=== PATIENT | male | born 1990 | race Two or more races ===

== ENCOUNTER 2020-03-11 08:35 | Emergency (ER) | payer SELFPAY ==
[2020-03-11 08:41] VITALS: BP 119/80; PULSE 59; TEMP 98.4; BMI 27.8
[2020-03-11] MEDS ORDERED: KETOROLAC TROMETHAMINE 30 MG/1 ML VIAL IM ONE (09:48)
[2020-03-11] MEDS ORDERED: KETOROLAC TROMETHAMINE 30 MG/1 ML VIAL ONE (09:53)
--- NOTE | 2020-03-11 09:56 | PDOC ---
History of Present Illness - General Chief Complaint: Pain Stated Complaint: RT SWOLLEN FOOT Time Seen by Provider: 03/11/20 09:18 History Source: Patient Exam Limitations: Clinical Condition - History of Present Illness Initial Comments: 03/11/20 09:51 Patient with no significant past medical history present with complaint of aching pain to bottom of bilateral feet with increased pain to right plantar aspect of foot since yesterday which has been progressing getting worse today. Patient works in the [employer] and reported has prolonged standing. Denies any trauma or injury to foot. Reported increased pain to bottom of bilateral feet when he steps on the foot. Denies any other symptoms Is this a multiple visit Asthma Patient?: No Timing/Duration: 24 hours Past History - Medical History Allergies/Adverse Reactions: Allergies Allergy/AdvReac Type Severity Reaction Status Date / Time No Known Allergies Allergy Verified 03/11/20 08:41 Home Medications: Ambulatory Orders Ibuprofen 800 mg PO Q8H PRN #20 tablet 03/11/20 - Psycho-Social/Smoking History Smoking History: Never smoked Have you smoked in the past 12 months: No Information on smoking cessation initiated: No - Substance Abuse Hx (Audit-C & DAST Scrn) How often the patient has a drink containing alcohol: Never Score: In Men: 4 or > Positive; In Women: 3 or > Positive: 0 Screen Result (Pos requires Nsg. Audit-10AR): Negative In the last yr the pt used illegal drug/Rx for NonMed reason: No Score: Yes response is considered Positive: 0 Screen Result (Positive result requires Nsg. DAST-10): Negative Review of Systems - Review of Systems Able to Perform ROS?: Yes Is the patient limited Tajik proficient: No Constitutional: No: Chills, Fever, Malaise HEENTM: No: Symptoms Reported Respiratory: No: Symptoms reported Cardiac (ROS): No: Symptoms Reported Musculoskeletal: Yes: Symptoms Reported, See HPI, Muscle Pain (Pain to bottom of bilateral feet) Integumentary: No: Symptoms Reported, See HPI, Bruising, Change in Color, Erythema Neurological: No: Symptoms reported, Numbness, Paresthesia, Tingling All Other Systems: Reviewed and Negative *Physical Exam - Vital Signs Last Vital Signs Temp Pulse Resp BP Pulse Ox 98.4 F 59 L 18 119/80 98 03/11/20 08:38 03/11/20 08:38 03/11/20 08:38 03/11/20 08:38 03/11/20 08:38 - Physical Exam 03/11/20 09:58 GENERAL: Well developed, well nourished. Awake and alert in mild acute distress. PULMONARY: No evidence of respiratory distress. MUSCULOSKELETAL : mild tenderness over plantar aspect of bilateral feet with increased pain to plantar aspect of right midfoot. No bony deformities EXTREMITIES: No cyanosis. No clubbing. No edema. No calf tenderness. SKIN: Warm and dry. Normal capillary refill. No visible swelling, bruising or ecchymosis to bilateral feet NEUROLOGICAL: Alert, awake, appropriate. No motor deficits in the lower extremities. Gait is normal without ataxia. PSYCHIATRIC: Cooperative. Good eye contact. Appropriate mood and affect. General Appearance: Yes: Nourished, Appropriately Dressed, Mild Distress Medical Decision Making - Medical Decision Making 03/11/20 09:54 Patient with no significant past medical history present with complaint of aching pain to bottom of bilateral feet with increased pain to right plantar aspect of foot since yesterday which has been progressing getting worse today. Patient works in the [employer] and reported has prolonged standing. Denies any trauma or injury to foot. Reported increased pain to bottom of bilateral feet when he steps on the foot. Denies any other symptoms Exam significant for mild tenderness to the plantar aspect of bilateral feet with increased tenderness to right midfoot and plantar aspect. No visible swelling or deformity. No tenderness to ankle. Exam patient symptoms likely plantar fasciitis. Toradol 30 mg ordered for pain. Patient stable for discharge on ibuprofen PRN for pain and advised to do warm soaks and Epson salt water with podiatry follow-up as needed Discharge - Discharge Information Problems reviewed: Yes Clinical Impression/Diagnosis: Plantar fasciitis, bilateral Condition: Stable Disposition: HOME - Admission No - Additional Discharge Information Prescriptions: Ibuprofen 800 mg PO Q8H PRN #20 tablet PRN Reason: pain - Follow up/Referral Referrals: Jhonathan Ball MD [Staff Physician] - - Patient Discharge Instructions Patient Printed Discharge Instructions: DI for Plantar Fasciitis Additional Instructions: Your foot pain is likely from plantar fasciitis which is inflammation of the tendon of the foot. Take prescribed Motrin as needed for pain. Soak foot and Epson salt water and warm water as needed for pain. Follow-up referred podiatry symptoms persist for more than 4 days Print Language: TELUGU - Post Discharge Activity Work/Back to School Note: Back to Work
== END 2020-03-11 10:00 | disposition home or self-care (01) ==
LOC: JER 08:35
PROC: 3E0233Z Introduction of Anti-inflammatory into Muscle, Percutaneous Approach (ICD-10-PCS; principal; 2020-03-11)
DX: M72.2 Plantar fascial fibromatosis (principal)
CPT/HCPCS: 99284-25